=== PATIENT | male | born 1965 | race Caucasian/White ===

== ENCOUNTER 2022-10-14 11:19 | Emergency (ER) | payer BC, OTHER ==
[~2022-10-14 11:19] MED LIST: Sodium Chloride 0.9% 10 ML Syringe FLUSH PRN
[2022-10-14] MEDS ORDERED: Sodium Chloride 0.9% 1,000 ML IV ONE (11:30)
[2022-10-14 11:39] LABS: BASOPHILS ABSOLUTE AUTO 0.1 x10^3/uL (0.0-0.2); BASOPHILS PERCENT AUTO 0.7 % (0.2-1.2); EOSINOPHILS ABSOLUTE AUTO 0.4 x10^3/uL (0.0-0.5); HEMATOCRIT 28.6 % (40.0-52.0); HEMOGLOBIN 9.6 g/dL (14.0-18.0); IMMATURE GRAN ABSOLUTE AUTO 0.47 x10^3/uL (0.00-0.07); LYMPHOCYTES ABSOLUTE AUTO 0.9 x10^3/uL (1.0-4.8); LYMPHOCYTES PERCENT AUTO 8.5 % (25.0-50.0); MEAN CORPUSCULAR HEMOGLOBIN 25.5 pg (26.0-32.0); MEAN CORPUSCULAR HGB CONC 33.6 g/dL (32.0-36.0); MEAN CORPUSCULAR VOLUME 76.1 fL (78.0-93.0); MONOCYTES ABSOLUTE AUTO 1.6 x10^3/uL (0.0-0.8); NEUTROPHILS ABSOLUTE AUTO 6.8 x10^3/uL (1.8-7.7); NEUTROPHILS PERCENT AUTO 66.6 % (50.0-80.0); PLATELET COUNT,PLT 376 x10^3/uL (130-400); RED BLOOD CELL COUNT 3.76 x10^6/uL (4.5-6.0); WHITE BLOOD CELL COUNT,WBC 10.1 x10^3/uL (4.0-10.0)
[2022-10-14 11:59] LABS: MONOCYTES PERCENT AUTO 15.6 % (2.0-11.0)
[2022-10-14 12:05] LABS: A/G RATIO 0.45; ALANINE AMINOTRANSFERASE,ALT 23 U/L (16-63); ALBUMIN 2.3 g/dL (3.4-5.0); ALKALINE PHOSPHATASE 230 U/L (46-116); ASPARTATE AMNIOTRANSFERASE,AST 313 U/L (15-37); BILIRUBIN TOTAL 0.4 mg/dL (0.2-1.0); CALCIUM 7.7 mg/dL (8.5-10.1); CARBON DIOXIDE,CO2 18 mmol/L (21-32); CHLORIDE,CL 101 mmol/L (98-107); GLUCOSE RANDOM 113 mg/dL (70-99); POTASSIUM,K 5.1 mmol/L (3.5-5.1); PROTEIN TOTAL,TP 7.4 g/dL (6.4-8.2); SODIUM,NA 138 mmol/L (136-145)
[2022-10-14 12:06] LABS: ANION GAP 24.1 mmol/L (5-15)
[2022-10-14 12:08] LABS: BLOOD UREA NITROGEN,BUN 99 mg/dL (7-18); CREATININE 5.9 mg/dL (0.70-1.30); ESTIMATED GFR 11 mL/min (>=60)
[2022-10-14 12:09] LABS: INR 1.8 (2.0-3.5); PROTHROMBIN TIME 19.1 SEC (9.5-12.2); PTT,PARTIAL THROMBOPLSTIN TIME 36.9 SEC (23.6-33.6)
[2022-10-14] MEDS ORDERED: Sodium Chloride 0.9% 1,000 ML IV SCH (12:30)
== END 2022-10-14 13:31 | disposition short-term general hospital (02) ==
LOC: VM.ED 11:19
DX: N17.9 Acute kidney failure, unspecified (principal); C78.5 Secondary malignant neoplasm of large intestine and rectum; E11.9 Type 2 diabetes mellitus without complications; Z79.899 Other long term (current) drug therapy; Z87.891 Personal history of nicotine dependence
CPT/HCPCS: 36415; 70450; 80053; 83605; 84145; 84484; 85025; 85610; 85730; 87040; 93005; 93010; 96360; 96361; 99284; 99285-25; J7030